=== PATIENT | female | born 1965 | race Caucasian/White ===

== ENCOUNTER 2021-11-07 16:17 | Emergency (ER) | payer BC, MEDICAID | END 2021-11-07 17:36 | disposition left against medical advice (07) | LOC: ER 16:19 | DX: M79.673 Pain in unspecified foot (principal); Z53.21 Procedure and treatment not carried out due to patient leaving prior to being seen by health care provider ==

== ENCOUNTER 2021-11-09 13:31 | Emergency (ER) | payer BC, MEDICAID | END 2021-11-09 14:49 | disposition left against medical advice (07) | LOC: ER 13:32 | DX: M79.673 Pain in unspecified foot (principal); Z53.21 Procedure and treatment not carried out due to patient leaving prior to being seen by health care provider ==